=== PATIENT | male | born 1995 | race Caucasian/White ===

== ENCOUNTER 2019-05-07 03:23 | Inpatient (IN) | payer SELFPAY ==
[2019-05-07] MEDS ORDERED: Bisacodyl 5 MG TAB PO PRN (05:14)
[2019-05-07] MEDS ORDERED: ceFAZolin 1 GM/D5W 1 GM in Premix Bag 1 BAG IVPB SCH (06:00)
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
[2019-05-07] MEDS: Morphine 2 MG/ML SYRINGE SLOW IVP PRN ×2 (06:12→10:15)
[2019-05-07] MEDS: Sodium Chloride 0.9% 1,000 ML IV SCH ×2 (06:13→23:13)
[2019-05-07 06:32] VITALS: BMI 31.9
[2019-05-07] MEDS: Nicotine 21 MG PATCH TD SCH (06:42)
--- NOTE | 2019-05-07 08:31 | RAD ---
Right wrist 4 views 05/07/2019 COMPARISON: None HISTORY: Fall, trauma, pain FINDINGS: There is a transverse displaced fracture at the base of the ulnar styloid. There is an obli quely oriented fracture involving the distal right radius at the base of the radial styloid extending into the radiocarpal joint. Orthopedic consultation advised. IMPRESSION: Fracture deformities of the distal right radius and ulnar styloid as detailed above.
[2019-05-07] MEDS: Enoxaparin Sodium 40 MG/0.4 ML SYRINGE SC SCH (09:28)
[2019-05-07] MEDS: Vancomycin HCl 1 GM in Premix Bag 1 BAG IVPB SCH ×2 (09:28→17:22)
[2019-05-07] MEDS ORDERED: ISOVUE-370 76%-LOCM 1 ML ONE (11:49)
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
[2019-05-07] MEDS: Piperacillin/Tazobactam 4.5 GM in Sodium Chloride 0.9% 100 ML IVPB SCH ×2 (14:28→20:43)
[2019-05-07] MEDS ORDERED: Acetaminophen 325 MG TAB PO PRN (14:53)
[2019-05-07] MEDS ORDERED: Morphine 2 MG/ML SYRINGE SLOW IVP PRN (14:55)
[2019-05-07] MEDS: HYDROcodone/Acetaminophen 5/325 mg Tablet PO PRN ×3 (15:55→23:10)
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
[2019-05-08] MEDS: Piperacillin/Tazobactam 4.5 GM in Sodium Chloride 0.9% 100 ML IVPB SCH ×4 (01:08→19:46)
[2019-05-08 01:33] LABS: Vancomycin, Trough 8.3 ug/mL
[2019-05-08] MEDS: Vancomycin HCl 1 GM in Premix Bag 1 BAG IVPB SCH (01:48)
[2019-05-08 05:06] LABS: #Basophils 0.1 thou/uL (0.0-0.2); #Eosinphils 0.5 thou/uL (0.0-0.7); #Lymphocytes 2.2 thou/uL (1.20-3.40); #Monocytes 0.8 thou/uL (0.11-0.59); #Neutrophils 3.2 thou/uL (1.40-6.50); %Eosinophils 7.4 % (0.0-10.0); %Lymphocytes 32.8 % (21.0-51.0); %Monocytes 11.6 % (0.0-10.0); %Neutrophils 47.1 % (42.0-75.0); Hemoglobin 13.9 g/dL (14.0-18.0); Mean Corpuscular HGB CONC 32.9 g/dL (32.0-36.0); Mean Corpuscular Hemoglobin 29.7 pg (27.0-31.0); Mean Corpuscular Volume 90.4 fL (78.0-98.0); Mean Platelet Volume 6.9 fL (7.4-10.4); Platelet Count 317 thou/uL (130-400); RBC Distribution Width 12.3 % (11.5-14.5); Red Blood Cell (RBC) Count 4.68 mill/uL (4.70-6.10); White Blood Cell (WBC) Count 6.8 thou/uL (4.8-10.8)
[2019-05-08 05:25] LABS: Anion Gap 10 mmol/L (10-20); BUN (Urea Nitrogen) 7 mg/dL (8.9-20.6); Calc. Creatinine Clearance 205 mL/min (70-130); Calcium 9.1 mg/dL (7.8-10.44); Carbon Dioxide 27 mmol/L (22-29); Chloride 105 mmol/L (98-107); Estimated GFR-MDRD Greater than 90; Glucose 106 mg/dL (70-105); Sodium 138 mmol/L (136-145)
[2019-05-08] MEDS: Nicotine 21 MG PATCH TD SCH (06:03)
[2019-05-08] MEDS: HYDROcodone/Acetaminophen 5/325 mg Tablet PO PRN (06:07)
[2019-05-08] MEDS: Sodium Chloride 0.9% 1,000 ML IV SCH ×3 (07:47→19:46)
[2019-05-08] MEDS: Enoxaparin Sodium 40 MG/0.4 ML SYRINGE SC SCH (08:45)
[2019-05-08] MEDS: Vancomycin HCl 1.5 GM in Sodium Chloride 0.9% 250 ML 300 ML IVPB SCH ×2 (10:02→16:18)
--- NOTE | 2019-05-08 11:08 | PDOC.HOSPP ---
- Subjective Encounter Date: 05/08/19 Encounter Time: 11:06 Subjective: Asleep, no new complaints - Objective Vital Signs & Weight: Vital Signs (12 hours) Temp Pulse Resp BP Pulse Ox 05/08/19 08:00 97 05/08/19 07:06 98.6 F 78 16 144/90 H 97 05/08/19 03:45 98.7 F 74 14 117/68 97 05/07/19 23:13 98.3 F 85 15 124/82 98 Weight Admit Weight 198 lb 2 oz Weight 198 lb 2 oz I&O: 05/07/19 05/08/19 05/09/19 06:59 06:59 06:59 Intake Total 1950 Balance 1950 Result Diagrams: 05/08/19 04:11 05/08/19 04:11 Hospitalist ROS - Medication Medications: Active Medications Generic Name Dose Route Start Last Admin Trade Name Freq PRN Reason Stop Dose Admin Hydrocodone Bitart/Acetaminophen 1 tab 05/07/19 14:53 05/07/19 17:11 [place] 5/325 PO 1 tab Q4H PRN Administration Moderate Pain (4-6) Hydrocodone Bitart/Acetaminophen 2 tab 05/07/19 14:53 05/08/19 06:07 [place] 5/325 PO 2 tab Q4H PRN Administration Moderate to Severe Pain (6-10) Enoxaparin Sodium 40 mg 05/07/19 09:00 05/08/19 08:45 Lovenox SC 40 mg 0900 DOM Administration Sodium Chloride 1,000 mls @ 100 mls/hr 05/07/19 05:15 05/08/19 07:47 Normal Saline 0.9% IV Not Given .Q10H DOM Piperacillin Sod/Tazobactam 100 mls @ 200 mls/hr 05/07/19 14:00 05/08/19 08: 43 Sod 4.5 gm/ Sodium Chloride IVPB 100 mls 0200,0800,1400,2000 DOM Administration Vancomycin HCl 1.5 gm/ Sodium 300 mls @ 200 mls/hr 05/08/19 09:00 05/08/19 10 :02 Chloride IVPB 300 mls 0100,0900,1700 DOM Administration Nicotine 21 mg 05/07/19 07:00 05/08/19 06:03 Nicoderm Patch TD 21 mg Q24HR DOM Administration - Exam General Appearance: NAD, awake alert, ill appearing Eye: PERRL, anicteric sclera, scleral icterus ENT: normocephalic atraumatic, no oropharyngeal lesions, moist mucosa, dry oral mucosa Neck: supple, symmetric, no JVD, no thyromegaly, no lymphadenopathy, no carotid bruit, JVD Heart: RRR, no murmur, no gallops, no rubs, normal peripheral pulses, irregular , diminshed peripheral pulses, murmur present, II/IV, III/IV Respiratory: CTAB, no wheezes, no rales, no ronchi, normal chest expansion, no tachypnea, normal percussion, rales, rhonchi, tachypneic, wheezes Gastrointestinal: soft, non-tender, non-distended, normal bowel sounds, no palpable masses, no hepatomegaly, no splenomegaly, no bruit, no guarding, no rigidity, tender to palpation, distended, diminished bowl sounds, voluntary guarding Hosp A/P (1) Left leg cellulitis Code(s): L03.116 - CELLULITIS OF LEFT LOWER LIMB Status: Acute - Plan continue antibiotics (apreciate ortho input and consultation.)
[2019-05-09] MEDS: Vancomycin HCl 1.5 GM in Sodium Chloride 0.9% 250 ML 300 ML IVPB SCH ×2 (00:07→11:49)
[2019-05-09] MEDS: Piperacillin/Tazobactam 4.5 GM in Sodium Chloride 0.9% 100 ML IVPB SCH ×3 (01:57→15:08)
[2019-05-09] MEDS: Nicotine 21 MG PATCH TD SCH (06:04)
[2019-05-09] MEDS: HYDROcodone/Acetaminophen 5/325 mg Tablet PO PRN ×2 (08:41→08:42)
[2019-05-09] MEDS: Enoxaparin Sodium 40 MG/0.4 ML SYRINGE SC SCH (08:49)
[2019-05-09] MEDS: Sodium Chloride 0.9% 1,000 ML IV SCH ×2 (09:12→15:36)
[2019-05-09 09:26] LABS: Vancomycin, Trough 10.3 ug/mL
[2019-05-09] MEDS ORDERED: Vancomycin HCl 1.5 GM in Sodium Chloride 0.9% 250 ML 300 ML IVPB SCH (12:00)
--- NOTE | 2019-05-09 14:35 | PDOC.HOSPP ---
- Subjective Encounter Date: 05/09/19 Encounter Time: 14:34 Subjective: the patient is willin to home on Po antibitic - Objective Vital Signs & Weight: Vital Signs (12 hours) Temp Pulse Resp BP Pulse Ox 05/09/19 12:00 98.3 F 91 14 143/90 H 98 05/09/19 09:00 96 05/09/19 08:00 98.4 F 86 15 133/86 96 05/09/19 04:24 98.5 F 83 18 138/91 H 99 Weight Admit Weight 198 lb 2 oz Weight 198 lb 2 oz I&O: 05/08/19 05/09/19 05/10/19 06:59 06:59 06:59 Intake Total 1950 2250 Balance 1950 2250 Result Diagrams: 05/08/19 04:11 05/08/19 04:11 Hospitalist ROS - Medication Medications: Active Medications Generic Name Dose Route Start Last Admin Trade Name Freq PRN Reason Stop Dose Admin Hydrocodone Bitart/Acetaminophen 1 tab 05/07/19 14:53 05/09/19 08:42 [place] 5/325 PO 1 tab Q4H PRN Administration Moderate Pain (4-6) Hydrocodone Bitart/Acetaminophen 2 tab 05/07/19 14:53 05/08/19 06:07 [place] 5/325 PO 2 tab Q4H PRN Administration Moderate to Severe Pain (6-10) Enoxaparin Sodium 40 mg 05/07/19 09:00 05/09/19 08:49 Lovenox SC 40 mg 0900 DOM Administration Sodium Chloride 1,000 mls @ 100 mls/hr 05/07/19 05:15 05/09/19 09:12 Normal Saline 0.9% IV Not Given .Q10H DOM Piperacillin Sod/Tazobactam 100 mls @ 200 mls/hr 05/07/19 14:00 05/09/19 08: 57 Sod 4.5 gm/ Sodium Chloride IVPB 100 mls 0200,0800,1400,2000 DOM Administration Vancomycin HCl 1.5 gm/ Sodium 300 mls @ 200 mls/hr 05/09/19 12:00 05/09/19 13 :07 Chloride IVPB 300 mls 0400,1200,2000 DOM Administration Morphine Sulfate 2 mg 05/07/19 14:55 05/09/19 11:08 Morphine SLOW IVP 2 mg Q4H PRN Administration Wound Care Nicotine 21 mg 05/07/19 07:00 05/09/19 06:04 Nicoderm Patch TD 21 mg Q24HR DOM Administration - Exam General Appearance: NAD, awake alert, ill appearing Eye: PERRL, anicteric sclera, scleral icterus ENT: normocephalic atraumatic, no oropharyngeal lesions, moist mucosa, dry oral mucosa Neck: supple, symmetric, no JVD, no thyromegaly, no lymphadenopathy, no carotid bruit, JVD Heart: RRR, no murmur, no gallops, no rubs, normal peripheral pulses, irregular , diminshed peripheral pulses, murmur present, II/IV, III/IV Respiratory: CTAB, no wheezes, no rales, no ronchi, normal chest expansion, no tachypnea, normal percussion, rales, rhonchi, tachypneic, wheezes Gastrointestinal: soft, non-tender, non-distended, normal bowel sounds, no palpable masses, no hepatomegaly, no splenomegaly, no bruit, no guarding, no rigidity, tender to palpation, distended, diminished bowl sounds, voluntary guarding Extremities: no cyanosis, no clubbing, no edema, 1+ LE edema, 2+ LE edema, clubbing Hosp A/P (1) Left leg cellulitis Code(s): L03.116 - CELLULITIS OF LEFT LOWER LIMB Status: Acute - Plan d/c planning to home with po CIPRo and Bacreim for wound, MRSA
[2019-05-09 15:52] VITALS: BP 127/85; TEMP 98.5
== END 2019-05-09 18:13 | disposition home or self-care (01) | DRG 603 ==
LOC: ERS 03:23 → SURG A 04:36
PROVIDERS: ADMIT Internal Medicine; ATTEND Internal Medicine
DX: L03.116 Cellulitis of left lower limb (principal); B95.62 Methicillin resistant Staphylococcus aureus infection as the cause of diseases classified elsewhere; F17.210 Nicotine dependence, cigarettes, uncomplicated
CPT/HCPCS: 36415; 80048; 80202; 82550; 85025; 87070; 87077; 87186; 87205; J0690; J1650; J2270; J2543; J3370; J3490; J7050; Q9966

== ENCOUNTER 2020-01-08 21:47 | Emergency (ER) | payer SELFPAY ==
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
[2020-01-08 22:13] LABS: #Eosinphils 0.3 thou/uL (0.0-0.7); #Lymphocytes 2.4 thou/uL (1.20-3.40); #Monocytes 1.1 thou/uL (0.11-0.59); #Neutrophils 8.3 thou/uL (1.40-6.50); %Basophils 0.3 % (0.0-1.0); %Eosinophils 2.8 % (0.0-10.0); %Lymphocytes 19.5 % (21.0-51.0); %Monocytes 9.3 % (0.0-10.0); %Neutrophils 68.1 % (42.0-75.0); Hemoglobin 14.6 g/dL (14.0-18.0); Mean Corpuscular HGB CONC 34.7 g/dL (32.0-36.0); Mean Corpuscular Volume 89.3 fL (78.0-98.0); Platelet Count 266 thou/uL (130-400); RBC Distribution Width 11.6 % (11.5-14.5); White Blood Cell (WBC) Count 12.2 thou/uL (4.8-10.8)
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
[2020-01-08 22:30] LABS: ALT (SGPT) 13 U/L (8-55); AST (SGOT) 15 U/L (5-34); Alkaline Phosphatase 84 U/L (40-110); Anion Gap 11 mmol/L (10-20); BUN (Urea Nitrogen) 12 mg/dL (8.9-20.6); Bilirubin, Total 0.5 mg/dL (0.2-1.2); Calc. Creatinine Clearance 0 mL/min (70-130); Carbon Dioxide 27 mmol/L (22-29); Chloride 106 mmol/L (98-107); Estimated GFR-MDRD Greater than 90; Globulin 2.5 g/dL (2.4-3.5); Glucose 120 mg/dL (70-105); Potassium 3.5 mmol/L (3.5-5.1); Protein, Total 6.5 g/dL (6.0-8.3); Sodium 140 mmol/L (136-145)
== END 2020-01-08 22:39 | disposition home or self-care (01) ==
LOC: ERS 21:47
DX: S20.212A Contusion of left front wall of thorax, initial encounter (principal); F15.10 Other stimulant abuse, uncomplicated; E86.0 Dehydration; F98.8 Other specified behavioral and emotional disorders with onset usually occurring in childhood and adolescence; F17.210 Nicotine dependence, cigarettes, uncomplicated; Y00.XXXA Assault by blunt object, initial encounter
CPT/HCPCS: 36415; 71045; 71260; 74177; 80053; 85025; 96360; G0390

== ENCOUNTER 2020-05-09 12:20 | Emergency (ER) | payer SELFPAY ==
[~2020-05-09 12:20] MED LIST: Iopamidol-370 76% 500 ML 1 ML ONE
[2020-05-09] MEDS ORDERED: Fentanyl 100 MCG/2 ML VIAL ONE (12:29)
[2020-05-09] MEDS ORDERED: Ondansetron PF 4 MG/2 ML Vial ONE (12:29)
[2020-05-09] MEDS ORDERED: Boostrix 0.5 ML VIAL ONE (12:33)
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
[2020-05-09 13:06] LABS: #Eosinphils 0.2 thou/uL (0.0-0.7); #Lymphocytes 1.6 thou/uL (1.20-3.40); #Monocytes 0.9 thou/uL (0.11-0.59); #Neutrophils 8.3 thou/uL (1.40-6.50); %Basophils 0.3 % (0.0-1.0); %Eosinophils 2.2 % (0.0-10.0); %Lymphocytes 14.6 % (21.0-51.0); %Monocytes 7.8 % (0.0-10.0); %Neutrophils 75.1 % (42.0-75.0); Mean Corpuscular HGB CONC 33.7 g/dL (32.0-36.0); Mean Corpuscular Hemoglobin 30.7 pg (27.0-31.0); Mean Platelet Volume 6.7 fL (7.4-10.4); Platelet Count 249 thou/uL (130-400); RBC Distribution Width 12.2 % (11.5-14.5); Red Blood Cell (RBC) Count 5.22 mill/uL (4.70-6.10)
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
[2020-05-09 13:22] LABS: INR-International Normal Ratio 0.9; PTT 26.1 sec (22.9-36.1); Prothrombin Time 12.4 sec (12.0-14.7)
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
[2020-05-09 13:39] LABS: ALT (SGPT) 19 U/L (8-55); AST (SGOT) 22 U/L (5-34); Albumin 4.4 g/dL (3.5-5.0); Alcohol Less than 10 mg/dL (Less than 10); Alkaline Phosphatase 101 U/L (40-110); Anion Gap 11 mmol/L (10-20); BUN (Urea Nitrogen) 12 mg/dL (8.9-20.6); Bilirubin, Total 0.5 mg/dL (0.2-1.2); Calc. Creatinine Clearance 0 mL/min (70-130); Calcium 9.5 mg/dL (7.8-10.44); Carbon Dioxide 27 mmol/L (22-29); Chloride 103 mmol/L (98-107); Estimated GFR-MDRD Greater than 90; Glucose 114 mg/dL (70-105); Potassium 4.2 mmol/L (3.5-5.1); Protein, Total 7.4 g/dL (6.0-8.3); Sodium 137 mmol/L (136-145)
[2020-05-09] MEDS ORDERED: Ketorolac Tromethamine 30 MG/ML VIAL ONE (14:02)
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
[2020-05-09 18:24] LABS: Acetaminophen Less than 6.0 mcg/mL (10.0-30.0); Alcohol Less than 10 mg/dL (Less than 10); Salicylate Less than 8.0 mg/dL (15.0-30.0)
[2020-05-09 23:11] LABS: Bilirubin Negative (Negative); Blood, Urine Negative (Negative); Clarity Clear (Clear); Glucose, Urine (Dipstick) Normal (Negative); Ketone, Urine Negative (Negative); Leukocyte Negative Leu/uL (Negative); Nitrite Negative (Negative); Protein, Urine (Dipstick) 20 mg/dL (Neg-Trace); pH, Urine 6.5 (5.0-9.0)
[2020-05-09 23:12] LABS: Specific Gravity, Urine 1.047 (1.002-1.036)
[2020-05-09 23:23] LABS: Medtox Reader # READER 4
[2020-05-09 23:24] LABS: Amphetamine Detected (NotDetected); Barbiturates Screen Not Detected (NotDetected); Benzodiazepine Screen Not Detected (NotDetected); Cocaine Metabolite Screen Not Detected (NotDetected); Medtox Control Line Valid? VALID (VALID); Methadone Not Detected (NotDetected); Methamphetamine Detected (NotDetected); Opiate Screen Not Detected (NotDetected); Oxycodone Screen Not Detected (NotDetected); Phencyclidine (PCP) Not Detected (NotDetected); THC/Cannabinoid Screen Not Detected (NotDetected); Tricyclic Screen Not Detected (NotDetected)
[2020-05-10] MEDS ORDERED: Acetaminophen 325 MG TAB ONE ×2 (02:23→10:55)
== END 2020-05-10 19:08 | disposition home or self-care (01) ==
LOC: ERS 12:20
DX: S42.302A Unspecified fracture of shaft of humerus, left arm, initial encounter for closed fracture (principal); S02.2XXA Fracture of nasal bones, initial encounter for closed fracture; S27.329A Contusion of lung, unspecified, initial encounter; F43.20 Adjustment disorder, unspecified; F19.10 Other psychoactive substance abuse, uncomplicated; F98.8 Other specified behavioral and emotional disorders with onset usually occurring in childhood and adolescence; F15.10 Other stimulant abuse, uncomplicated; F17.210 Nicotine dependence, cigarettes, uncomplicated; V49.9XXA Car occupant (driver) (passenger) injured in unspecified traffic accident, initial encounter
CPT/HCPCS: 36415; 70450; 70486; 70498; 71260; 72125; 74177; 80053; 80306; 80307; 81003; 85025; 85610; 85730; 90471; 90715; 96365; 96375; G0390; J0690; J1885; J2405; J3010; Q9967